=== PATIENT | female | born 1955 | race Hispanic/Latino ===

== ENCOUNTER → 2017-11-18 | Outpatient (CLI) | payer OTHER ==
[~2017-11-18] MED LIST: ATOR40TA69 PO; CALC-911 PO; DIAZ5TAB4 PO; ESCI20TA PO; GEMF600T4 PO; LORA10TA7 PO; OMEP40CA37 PO; PROP40TA7 PO; VITA1CAP85 PO
== END | disposition home or self-care (01) ==
LOC: RAH 10:39
PROVIDERS: ATTEND Family Medicine
DX: M79.89 Other specified soft tissue disorders (principal)
CPT/HCPCS: 73700

== ENCOUNTER 2017-12-09 06:19 | Day surgery (SDC) | payer OTHER ==
[2017-12-07 15:53] VITALS: BP 144/68
[2017-12-07 16:08] LABS: APPEARANCE,URINE Clear (CLEAR); BILIRUBIN,URINE Negative (NEGATIVE); COLOR,URINE Yellow (YELLOW); GLUCOSE, URINE (UA) Negative (NEGATIVE); KETONES,URINE Negative (NEGATIVE); LEUKOCYTE ESTERASE ,URINE Small (NEGATIVE); NITRATE,URINE Negative (NEGATIVE); OCCULT BLOOD,URINE Negative (NEGATIVE); PH,URINE 5.5 (5.0-8.0); PROTEIN,URINE Negative (NEGATIVE); UROBILINOGEN,URINE 0.2 mg/dL (0.2-1.0)
[2017-12-07 16:10] LABS: BASOPHILS % (AUTO) 0.4 % (0.0-5.0); HEMATOCRIT 42.5 % (36-48); LYMPHOCYTES % (AUTO) 33.5 % (21.0-51.0); MEAN CORPUSCULAR HGB CONC 32.5 g/dL (32.0-36.0); MEAN CORPUSCULAR VOLUME 89.3 fL (79-99); MONOCYTES % (AUTO) 6.3 % (3.0-13.0); NEUTROPHILS % (AUTO) 57.8 % (40.0-77.0); PLATELET COUNT (AUTO) 245 K/uL (130-400); RED BLOOD CELL COUNT(AUTO) 4.77 MIL/uL (4.00-5.50); RED CELL DISTRIBUTION WIDTH 15.2 % (11.0-15.5); WHITE BLOOD COUNT (AUTO) 6.6 K/uL (4.8-10.8)
[2017-12-07 16:19] LABS: CREATININE 0.9 mg/dL (0.5-1.5); POTASSIUM 3.8 mmol/L (3.5-5.1)
[2017-12-07 16:29] LABS: RBC,URINE 0-1 /HPF (0-1)
[2017-12-07 16:30] LABS: BACTERIA,URINE Rare /HPF (None Seen)
[2017-12-07 16:31] LABS: SQUAMOUS EPITHELIAL CELL,UR Rare /HPF (0-2); TRANSITIONAL EPI CELLS,URINE Rare /HPF (None Seen)
[~2017-12-09] VITALS: Ht 149.9 cm; Wt 83.5 kg
[2017-12-09] VITALS (14 sets, daily range): BP systolic 113–143; BP diastolic 60–78
[~2017-12-09 06:19] MED LIST changes: -CALC-911 PO; +CALCIUM + D3 PO; -ESCI20TA PO; +ESCI20TA36 PO; +FEXO180T94 PO; -GEMF600T4 PO; -LORA10TA7 PO; +SODIUM CHLORIDE 0.9% 1000ML 1,000 ML IV SCH
[2017-12-09] MEDS ORDERED: PROPOFOL 10 MG/ML 20ML VIAL IV ONE (06:54)
[2017-12-09] MEDS ORDERED: LIDOCAINE PF 2% 5ML ABBOJECT ONE (06:54)
[2017-12-09] MEDS ORDERED: ONDANSETRON HCL 4 MG/2 ML VIAL ONE (06:54)
[2017-12-09] MEDS ORDERED: FENTANYL CITRATE PF 50 MCG/1 ML 2ML VIAL ONE ×2 (06:55→08:34)
[2017-12-09] MEDS ORDERED: BUPIVACAINE/PF 0.25% 30ML VIAL IJ ONE (07:27)
[2017-12-09] MEDS ORDERED: FAMOTIDINE/PF 20 MG/2 ML VIAL IV ONE (07:38)
[2017-12-09] MEDS ORDERED: MIDAZOLAM HCL 1 MG/ML 2ML VIAL ONE (07:39)
== END 2017-12-09 10:10 | disposition home or self-care (01) ==
LOC: DAH 06:19
PROVIDERS: ATTEND Surgery
DX: C82.85 Other types of follicular lymphoma, lymph nodes of inguinal region and lower limb (principal); R59.0 Localized enlarged lymph nodes; E11.9 Type 2 diabetes mellitus without complications; E66.9 Obesity, unspecified; M79.7 Fibromyalgia; I10 Essential (primary) hypertension; K21.9 Gastro-esophageal reflux disease without esophagitis; K76.0 Fatty (change of) liver, not elsewhere classified; H91.91 Unspecified hearing loss, right ear; M19.90 Unspecified osteoarthritis, unspecified site; Z88.0 Allergy status to penicillin; Z79.899 Other long term (current) drug therapy; Z90.49 Acquired absence of other specified parts of digestive tract; Z98.51 Tubal ligation status; Z98.890 Other specified postprocedural states; Z88.8 Allergy status to other drugs, medicaments and biological substances
CPT/HCPCS: 36415; 38500; 80048; 81001; 82948 ×2; 85025; 88304; A4450; A4600; J2001; J2250; J2405; J2704; J3010; J3490; J7030

== ENCOUNTER 2018-01-05 07:05 | Day surgery (SDC) | payer OTHER ==
[2018-01-03 13:09] VITALS: BP 133/71
[2018-01-03 13:15] LABS: BASOPHILS % (AUTO) 0.4 % (0.0-5.0); EOSINOPHILS % (AUTO) 1.7 % (0.0-8.0); HEMATOCRIT 40.7 % (36-48); LYMPHOCYTES % (AUTO) 29.7 % (21.0-51.0); MEAN CORPUSCULAR HGB CONC 33.9 g/dL (32.0-36.0); MEAN CORPUSCULAR VOLUME 88.6 fL (79-99); MONOCYTES % (AUTO) 6.7 % (3.0-13.0); NEUTROPHILS % (AUTO) 61.5 % (40.0-77.0); PLATELET COUNT (AUTO) 230 K/uL (130-400); RED BLOOD CELL COUNT(AUTO) 4.59 MIL/uL (4.00-5.50); RED CELL DISTRIBUTION WIDTH 14.7 % (11.0-15.5); WHITE BLOOD COUNT (AUTO) 7.3 K/uL (4.8-10.8)
[2018-01-03 13:25] LABS: INR 0.93 (0.85-1.15); PARTIAL THROMBOPLASTIN TIME 26.9 SEC (26.3-35.5); PROTHROMBIN TIME 9.8 SEC (9.6-11.6)
[~2018-01-05] VITALS: Ht 149.9 cm; Wt 81.5 kg
[~2018-01-05 07:05] MED LIST changes: -SODIUM CHLORIDE 0.9% 1000ML 1,000 ML IV SCH
[2018-01-05 07:15] VITALS: BP 118/71
[2018-01-05] MEDS ORDERED: LIDOCAINE 1%-EPI 1:100,000 20 ML VIAL IJ ONE (10:49)
[2018-01-05] MEDS ORDERED: LIDOCAINE HCL 1% MDV 50ML VIAL ONE (10:49)
[2018-01-05] MEDS ORDERED: BUPIVACAINE/PF 0.25% 50ML VIAL IJ ONE (10:49)
[2018-01-05] MEDS ORDERED: MIDAZOLAM HCL 1 MG/ML 2ML VIAL ONE (11:05)
[2018-01-05] MEDS ORDERED: FENTANYL CITRATE PF 50 MCG/1 ML 2ML VIAL ONE (11:05)
[2018-01-05 11:55] VITALS: BP 126/64
[2018-01-05 12:12] VITALS: BP 122/69
[2018-01-05 12:18] VITALS: BP 120/60
== END 2018-01-05 12:30 | disposition home or self-care (01) ==
LOC: DAH 07:05
PROVIDERS: ATTEND Internal Medicine Medical Oncology
DX: Z51.11 Encounter for antineoplastic chemotherapy (principal); Z79.899 Other long term (current) drug therapy; Z88.0 Allergy status to penicillin; Z88.8 Allergy status to other drugs, medicaments and biological substances; Z68.38 Body mass index [BMI] 38.0-38.9, adult; E66.9 Obesity, unspecified; I10 Essential (primary) hypertension; K21.9 Gastro-esophageal reflux disease without esophagitis; E78.5 Hyperlipidemia, unspecified; F41.9 Anxiety disorder, unspecified; F32.9 Major depressive disorder, single episode, unspecified; Z98.51 Tubal ligation status; C82.20 Follicular lymphoma grade III, unspecified, unspecified site
CPT/HCPCS: 36415; 36561; 77001; 82948; 85025; 85610; 85730; A4606; C1788; C1894; J1644 ×2; J2250; J3010; J3490 ×2; 99156; 99157

== ENCOUNTER 2018-07-01 06:56 | Emergency (ER) | payer OTHER, MEDICARE ==
[2018-07-01 07:50] LABS: BASOPHILS % (AUTO) 0.5 % (0.0-5.0); EOSINOPHILS % (AUTO) 2.4 % (0.0-8.0); HEMATOCRIT 38.5 % (36-48); LYMPHOCYTES % (AUTO) 7.6 % (21.0-51.0); MEAN CORPUSCULAR HEMOGLOBIN 31.8 pg (27.0-33.0); MEAN CORPUSCULAR HGB CONC 34.4 g/dL (32.0-36.0); MEAN CORPUSCULAR VOLUME 92.4 fL (79-99); MONOCYTES % (AUTO) 18.2 % (3.0-13.0); NEUTROPHILS % (AUTO) 71.3 % (40.0-77.0); PLATELET COUNT (AUTO) 170 K/uL (130-400); RED BLOOD CELL COUNT(AUTO) 4.17 MIL/uL (4.00-5.50); RED CELL DISTRIBUTION WIDTH 14.4 % (11.0-15.5)
[2018-07-01 07:52] LABS: APPEARANCE,URINE CLEAR (CLEAR); BILIRUBIN,URINE NEGATIVE (NEGATIVE); COLOR,URINE YELLOW (YELLOW); GLUCOSE, URINE (UA) NEGATIVE (NEGATIVE); KETONES,URINE NEGATIVE (NEGATIVE); LEUKOCYTE ESTERASE ,URINE NEGATIVE (NEGATIVE); NITRATE,URINE NEGATIVE (NEGATIVE); OCCULT BLOOD,URINE TRACE-INTACT (NEGATIVE); PH,URINE 5.5 (5.0-8.0); PROTEIN,URINE NEGATIVE (NEGATIVE); UROBILINOGEN,URINE 0.2 mg/dL (0.2-1.0)
[2018-07-01 07:59] LABS: CREATININE 0.8 mg/dL (0.5-1.5); POTASSIUM 3.9 mmol/L (3.5-5.1)
[2018-07-01 08:03] LABS: ALBUMIN 3.2 g/dL (3.5-5.0); BILIRUBIN,TOTAL 0.5 mg/dL (0.2-1.0); TOTAL PROTEIN, SERUM 7.4 g/dL (6.0-8.3)
[2018-07-01 08:05] LABS: BACTERIA,URINE Rare /HPF (None Seen); RBC,URINE 0-1 /HPF (0-1); SQUAMOUS EPITHELIAL CELL,UR Few /HPF (0-2); WBC,URINE 0-1 /HPF (0-1)
[2018-07-01 08:26] LABS: BASOPHILS % (MANUAL) 1 % (0-2); EOSINOPHILS % (MANUAL) 3 % (1-6); LYMPHOCYTES % (MANUAL) 4 % (22-44); MAN.DIFF COMMENT-IMPRESSION MANUAL DIFFERENTIAL; MONOCYTES % (MANUAL) 12 % (2-9); PLATELET MORPHOLOGY COMMENT ADEQUATE; REACTIVE LYMPHOCYTES 3 % (0-0); SEGMENTED NEUTROPHILS % 77 % (40-70)
== END 2018-07-01 09:08 | disposition home or self-care (01) ==
LOC: EDH 06:56
DX: R10.13 Epigastric pain (principal); R11.2 Nausea with vomiting, unspecified; E11.9 Type 2 diabetes mellitus without complications; F41.9 Anxiety disorder, unspecified; F32.9 Major depressive disorder, single episode, unspecified; E78.5 Hyperlipidemia, unspecified; Z90.49 Acquired absence of other specified parts of digestive tract; Z79.4 Long term (current) use of insulin; Z88.1 Allergy status to other antibiotic agents
CPT/HCPCS: 36415; 74176; 80053; 81001; 83690; 84484; 85025; 93005

== ENCOUNTER 2019-05-07 20:34 | Inpatient (IN) | payer OTHER, MEDICARE ==
[~2019-05-07] VITALS: Ht 149.9 cm; Wt 84.8 kg
[~2019-05-07 20:34] MED LIST changes: +DOCU100C33 PO; +OMEP40CA13 PO; -OMEP40CA37 PO
[2019-05-07] MEDS ORDERED: ACETAMINOPHEN EXTRA STRENGTH 500 MG TABLET ONE (20:57)
[2019-05-07 21:36] LABS: EOSINOPHILS % (AUTO) 1.4 % (0.0-8.0); HEMATOCRIT 34.6 % (36-48); LYMPHOCYTES % (AUTO) 28.1 % (21.0-51.0); MEAN CORPUSCULAR HEMOGLOBIN 29.2 pg (27.0-33.0); MEAN CORPUSCULAR HGB CONC 32.1 g/dL (32.0-36.0); MEAN CORPUSCULAR VOLUME 91.1 fL (79-99); MONOCYTES % (AUTO) 26.7 % (3.0-13.0); NEUTROPHILS % (AUTO) 31.5 % (40.0-77.0); PLATELET COUNT (AUTO) 127 K/uL (130-400); RED CELL DISTRIBUTION WIDTH 14.6 % (11.0-15.5); WHITE BLOOD COUNT (AUTO) 1.5 K/uL (4.8-10.8)
[2019-05-07 21:49] LABS: RAPID GROUP A STREP NEGATIVE (NEGATIVE)
[2019-05-07 21:55] LABS: CREATININE 0.9 mg/dL (0.5-1.5); POTASSIUM 3.9 mmol/L (3.5-5.1)
[2019-05-07 22:00] LABS: ALBUMIN 2.6 g/dL (3.5-5.0); BILIRUBIN,TOTAL 0.4 mg/dL (0.2-1.0)
[2019-05-07 22:07] LABS: BAND NEUTROPHILS % (MANUAL) 2 % (0-2); EOSINOPHILS % (MANUAL) 1 % (1-6); LYMPHOCYTES % (MANUAL) 30 % (22-44); MAN.DIFF COMMENT-IMPRESSION MANUAL DIFFERENTIAL; MONOCYTES % (MANUAL) 32 % (2-9); SEGMENTED NEUTROPHILS % 35 % (40-70)
[2019-05-07 23:05] LABS: APPEARANCE,URINE Clear (CLEAR); BILIRUBIN,URINE Negative (NEGATIVE); COLOR,URINE Yellow (YELLOW); GLUCOSE, URINE (UA) Negative (NEGATIVE); KETONES,URINE Negative (NEGATIVE); LEUKOCYTE ESTERASE ,URINE Negative (NEGATIVE); NITRATE,URINE Negative (NEGATIVE); OCCULT BLOOD,URINE Negative (NEGATIVE); PH,URINE 7.5 (5.0-8.0); PROTEIN,URINE Negative (NEGATIVE); UROBILINOGEN,URINE 0.2 mg/dL (0.2-1.0)
[2019-05-08] MEDS ORDERED: SODIUM CHLORIDE 0.9% 1000ML 1,000 ML IV ONE (00:49)
[2019-05-08] MEDS ORDERED: LEVOFLOXACIN 750 MG/D5W 150 ML 150 ML ONE (00:49)
[2019-05-08] MEDS ORDERED: ERYTHROMYCIN BASE 0.5% OPHTH OINT 1 GM TUBE ONE (01:52)
[2019-05-08] MEDS ORDERED: IBUPROFEN 400 MG TABLET ONE (02:06)
[2019-05-08] MEDS ORDERED: ACETAMINOPHEN 325 MG TAB ONE ×2 (02:11→11:29)
[2019-05-08] MEDS ORDERED: ZOSYN 3.375GM+NS 50ML 50 ML IV ONE (04:11)
[2019-05-08] MEDS ORDERED: LACTATED RINGERS 1000ML 1,000 ML IV ONE (07:22)
[2019-05-08] MEDS ORDERED: ENOXAPARIN SODIUM 40 MG/0.4 ML SYRINGE SQ ONE (07:39)
[2019-05-08] MEDS ORDERED: PANTOPRAZOLE SODIUM 40 MG TABLET.DR ONE (07:39)
[2019-05-08] MEDS ORDERED: OSELTAMIVIR PHOSPHATE 75 MG CAP ONE (07:40)
[2019-05-08] MEDS: ZOSYN 3.375GM+NS 50ML 50 ML IV SCH ×2 (08:00→16:00)
[2019-05-08] MEDS ORDERED: ONDANSETRON HCL 4 MG/2 ML VIAL IVP PRN (08:00)
[2019-05-08] MEDS ORDERED: LIDOCAINE HCL-MPF 1% 2ML VIAL IJ PRN (08:00)
[2019-05-08] MEDS ORDERED: IBUPROFEN 400 MG TABLET PO PRN (08:00)
[2019-05-08] MEDS ORDERED: POTASSIUM CHLORIDE 20MEQ/100ML 100 ML IV PRN (08:00)
[2019-05-08] MEDS ORDERED: HYDRALAZINE HCL 20 MG/ML VIAL IV PRN (08:00)
[2019-05-08] MEDS ORDERED: POTASSIUM CHLORIDE 10% ELIXIR 20 MEQ/15 ML UDCUP PO PRN (08:00)
[2019-05-08] MEDS: LACTATED RINGERS 1000ML 1,000 ML IV SCH ×3 (08:00→21:46)
[2019-05-08] MEDS ORDERED: VANCOMYCIN PROTOCOL PER PHARMACY IV SCH (08:15)
[2019-05-08] MEDS ORDERED: COMPOUND IV REFRIGERATED 1 EACH IVSOLN MISC PRN (08:15)
[2019-05-08] MEDS: PANTOPRAZOLE SODIUM 40 MG TABLET.DR PO SCH (09:00)
[2019-05-08] MEDS: OSELTAMIVIR SUSP 15 MG/ML (6 CAPS/29ML) PO SCH ×4 (09:00→21:00)
[2019-05-08] MEDS: VANCOMYCIN 1.25 GM in SODIUM CHLORIDE 0.9% 250 ML IV SCH (09:00)
[2019-05-08] MEDS: ENOXAPARIN SODIUM 40 MG/0.4 ML SYRINGE SQ SCH (09:00)
[2019-05-08] MEDS ORDERED: LENA15CA PO (09:35)
[2019-05-08] MEDS ORDERED: DEXA4TAB PO (09:35)
[2019-05-08] MEDS ORDERED: ACYC400T PO (09:35)
[2019-05-08] MEDS ORDERED: METRONIDAZOLE 500MG/100ML BAG 100 ML ONE (11:18)
[2019-05-08] MEDS ORDERED: ONDANSETRON HCL 4 MG/2 ML VIAL ONE (11:29)
--- NOTE | 2019-05-08 11:43 | NUR ---
INITIAL Patient lives with son. Emergency contacts are sons: Lei Guillory, [phone] and Jose Jeffry, [phone]. No home services. Patient is visited by nurse from her insurance once a month. DME: glucometer (no insulin). Patient is able to drive and complete ADL's independently. PCP is Dr. Alfonso Morin. Pharmacy is [facility] located in [place]. DCP is home. Addendum: 05/08/19 at 1145 by ALFONSO FOX SS Amended: Links added.
[2019-05-08 13:50] VITALS: BP 106/65
[2019-05-08 15:50] VITALS: BP 106/65
[2019-05-08] MEDS: INSULIN R PO SS1 SQ SCH ×2 (16:30→21:00)
[2019-05-08] MEDS ORDERED: LEVOFLOXACIN 500 MG/D5W 100 ML 100 ML IV SCH (18:30)
[2019-05-08 19:05] VITALS: BP 131/52
--- NOTE | 2019-05-08 20:41 | NUR ---
EYE PAIN AND HEADACHE PT IS COMPLAINING OF SEVERE EYE IRRITATION AND HEADACHE. PT STATES TO BELIEVE HEADACHE IS BEING CAUSED BY HER EYE IRRITATION. LEFT EYE IS VISUALLY RED, SENSITIVE TO LIGHT, AND MINIMAL DISCHARGE IS NOTED. ATTENDING PAGED AT THIS TIME FOR FURTHER ORDERS.
[2019-05-08] MEDS: ***HM***(Fexofenadine HCl (Allegra Allergy) 180 MG) PO SCH (21:00)
[2019-05-08] MEDS ORDERED: CALCIUM 600 + VITAMIN D 400 TABLET PO SCH (21:00)
[2019-05-08] MEDS ORDERED: HYDROCODONE/ACETAMINOPHEN 5/325 MG TAB PO PRN (21:15)
[2019-05-08] MEDS: ATORVASTATIN CALCIUM 40 MG TABLET PO SCH (21:47)
[2019-05-08] MEDS: ACETAMINOPHEN 325 MG TAB PO PRN (21:47)
[2019-05-08] MEDS: PROPRANOLOL HCL 20 MG TAB PO SCH (21:49)
[2019-05-08] MEDS: CITALOPRAM 20 MG TABLET PO SCH (21:49)
[2019-05-08] MEDS: DIAZEPAM 5 MG TABLET PO SCH (22:15)
[2019-05-08] MEDS ORDERED: PHARMACY COMMUNICATION MISC SCH (22:30)
[2019-05-08 23:23] VITALS: BP 117/58
[2019-05-09] MEDS: LEVOFLOXACIN 250 MG/D5W 50ML 50 ML IVPB SCH ×2 (01:44→01:46)
[2019-05-09 03:10] VITALS: BP 121/46
[2019-05-09 04:38] LABS: HEMATOCRIT 31.2 % (36-48); MEAN CORPUSCULAR HGB CONC 31.4 g/dL (32.0-36.0); MEAN CORPUSCULAR VOLUME 92.3 fL (79-99); PLATELET COUNT (AUTO) 130 K/uL (130-400); RED BLOOD CELL COUNT(AUTO) 3.38 MIL/uL (4.00-5.50); RED CELL DISTRIBUTION WIDTH 14.8 % (11.0-15.5); WHITE BLOOD COUNT (AUTO) 1.2 K/uL (4.8-10.8)
[2019-05-09 05:01] LABS: POTASSIUM 4.1 mmol/L (3.5-5.1)
[2019-05-09] MEDS: INSULIN R PO SS1 SQ SCH ×4 (07:16→21:00)
[2019-05-09 07:30] VITALS: BP 123/63
[2019-05-09] MEDS: PANTOPRAZOLE SODIUM 40 MG TABLET.DR PO SCH ×2 (09:00→09:16)
[2019-05-09] MEDS: OSELTAMIVIR SUSP 15 MG/ML (6 CAPS/29ML) PO SCH ×4 (09:00→21:34)
[2019-05-09] MEDS: PROPRANOLOL HCL 20 MG TAB PO SCH ×2 (09:15→20:06)
[2019-05-09] MEDS: CALCIUM 600 + VITAMIN D 400 TABLET PO SCH ×2 (09:15→20:06)
[2019-05-09] MEDS: ENOXAPARIN SODIUM 40 MG/0.4 ML SYRINGE SQ SCH (09:15)
[2019-05-09] MEDS: LACTATED RINGERS 1000ML 1,000 ML IV SCH ×2 (09:26→16:03)
[2019-05-09] MEDS: VANCOMYCIN 1.25 GM in SODIUM CHLORIDE 0.9% 250 ML IV SCH (10:16)
[2019-05-09] MEDS: DIAZEPAM 5 MG TABLET PO SCH ×2 (10:16→21:26)
[2019-05-09 11:00] VITALS: BP 125/66
[2019-05-09] MEDS: ACETAMINOPHEN 325 MG TAB PO PRN ×2 (11:36→20:05)
[2019-05-09] MEDS ORDERED: COMPOUND PO MISCELLANEOUS 1 EACH MISC MISC PRN (12:00)
[2019-05-09] MEDS: GENTAMICIN SULFATE 0.3% 3.5 GM OPHTH OINT OU SCH ×3 (12:37→21:29)
[2019-05-09] MEDS: TBO-FILGRASTIM 300 MCG/0.5 ML ML SQ SCH (14:49)
[2019-05-09 16:00] VITALS: BP 111/61
[2019-05-09 19:05] VITALS: BP 133/66
[2019-05-09] MEDS: FLUTICASONE PROPIONATE 50MCG/SPRAY 16 GM BOTTLE EN SCH (20:04)
[2019-05-09] MEDS: ACYCLOVIR 200 MG CAPSULE PO SCH (20:05)
[2019-05-09] MEDS: CITALOPRAM 20 MG TABLET PO SCH (20:06)
[2019-05-09] MEDS ORDERED: GUAIFENESIN 600 MG TABLET.ER PO SCH (21:00)
[2019-05-09] MEDS: ***HM***(Fexofenadine HCl (Allegra Allergy) 180 MG) PO SCH (21:00)
[2019-05-09] MEDS: ACETYLCYSTEINE 600 MG CAPSULE PO SCH (21:23)
[2019-05-09] MEDS: ATORVASTATIN CALCIUM 40 MG TABLET PO SCH (21:23)
[2019-05-09 23:48] VITALS: BP 127/50
[2019-05-10] MEDS: LACTATED RINGERS 1000ML 1,000 ML IV SCH ×3 (02:31→23:35)
[2019-05-10] MEDS: LEVOFLOXACIN 250 MG/D5W 50ML 50 ML IVPB SCH (02:31)
[2019-05-10 03:00] VITALS: BP 126/59
[2019-05-10 05:30] LABS: ALBUMIN 2.1 g/dL (3.5-5.0); BILIRUBIN,TOTAL 0.3 mg/dL (0.2-1.0); CREATININE 0.9 mg/dL (0.5-1.5); POTASSIUM 3.8 mmol/L (3.5-5.1); TOTAL PROTEIN, SERUM 6.3 g/dL (6.0-8.3)
[2019-05-10 05:45] LABS: HEMATOCRIT 31.1 % (36-48); MEAN CORPUSCULAR HEMOGLOBIN 29.3 pg (27.0-33.0); MEAN CORPUSCULAR HGB CONC 31.8 g/dL (32.0-36.0); PLATELET COUNT (AUTO) 165 K/uL (130-400); RED BLOOD CELL COUNT(AUTO) 3.38 MIL/uL (4.00-5.50); RED CELL DISTRIBUTION WIDTH 14.7 % (11.0-15.5); WHITE BLOOD COUNT (AUTO) 2.3 K/uL (4.8-10.8)
[2019-05-10 06:15] LABS: BAND NEUTROPHILS % (MANUAL) 20 % (0-2); EOSINOPHILS % (MANUAL) 4 % (1-6); LYMPHOCYTES % (MANUAL) 20 % (22-44); MAN.DIFF COMMENT-IMPRESSION MANUAL DIFFERENTIAL; METAMYELOCYTES % 2 % (0-0); MONOCYTES % (MANUAL) 8 % (2-9); MYELOCYTES % 4 % (0-0); PLATELET MORPHOLOGY COMMENT ADEQUATE; REACTIVE LYMPHOCYTES 8 % (0-0); SEGMENTED NEUTROPHILS % 34 % (40-70)
[2019-05-10] MEDS: INSULIN R PO SS1 SQ SCH ×3 (06:51→21:00)
[2019-05-10] MEDS: PANTOPRAZOLE SODIUM 40 MG TABLET.DR PO SCH ×2 (06:51→08:51)
--- NOTE | 2019-05-10 07:59 | NUR ---
Patient remained stable, no significant change through the night,endorsed care to incoming NOD using SBAr,all questions answered.
[2019-05-10 08:12] VITALS: BP 128/63
[2019-05-10] MEDS: TBO-FILGRASTIM 300 MCG/0.5 ML ML SQ SCH (08:50)
[2019-05-10] MEDS: ENOXAPARIN SODIUM 40 MG/0.4 ML SYRINGE SQ SCH (08:51)
[2019-05-10] MEDS: CALCIUM 600 + VITAMIN D 400 TABLET PO SCH ×2 (08:51→21:20)
[2019-05-10] MEDS: ACYCLOVIR 200 MG CAPSULE PO SCH ×2 (08:51→21:20)
[2019-05-10] MEDS: ACETYLCYSTEINE 600 MG CAPSULE PO SCH ×2 (08:51→21:19)
[2019-05-10] MEDS: PROPRANOLOL HCL 20 MG TAB PO SCH ×2 (08:52→21:20)
[2019-05-10] MEDS: GENTAMICIN SULFATE 0.3% 3.5 GM OPHTH OINT OU SCH ×2 (08:57→21:24)
[2019-05-10] MEDS: OSELTAMIVIR SUSP 15 MG/ML (6 CAPS/29ML) PO SCH ×4 (08:57→21:28)
[2019-05-10] MEDS: FLUTICASONE PROPIONATE 50MCG/SPRAY 16 GM BOTTLE EN SCH ×2 (08:58→21:24)
[2019-05-10] MEDS: DIAZEPAM 5 MG TABLET PO SCH ×2 (09:04→21:28)
[2019-05-10 11:15] VITALS: BP 121/62
[2019-05-10] MEDS: ACETAMINOPHEN 325 MG TAB PO PRN (11:15)
--- NOTE | 2019-05-10 13:28 | NUR ---
[id number] patient signed IM Letter to [id number] and placed in chart under consent tab
[2019-05-10 16:00] VITALS: BP 122/61
[2019-05-10 19:00] VITALS: BP 127/63
[2019-05-10] MEDS: ***HM***(Fexofenadine HCl (Allegra Allergy) 180 MG) PO SCH (21:00)
[2019-05-10] MEDS: CITALOPRAM 20 MG TABLET PO SCH (21:20)
[2019-05-10] MEDS: ATORVASTATIN CALCIUM 40 MG TABLET PO SCH (21:20)
[2019-05-10 23:00] VITALS: BP 132/66
[2019-05-11] MEDS: LEVOFLOXACIN 250 MG/D5W 50ML 50 ML IVPB SCH (01:04)
[2019-05-11 03:00] VITALS: BP 125/65
[2019-05-11 04:13] LABS: HEMATOCRIT 31.8 % (36-48); MEAN CORPUSCULAR HEMOGLOBIN 28.6 pg (27.0-33.0); MEAN CORPUSCULAR HGB CONC 31.4 g/dL (32.0-36.0); MEAN CORPUSCULAR VOLUME 90.9 fL (79-99); PLATELET COUNT (AUTO) 195 K/uL (130-400); RED CELL DISTRIBUTION WIDTH 14.8 % (11.0-15.5)
[2019-05-11 04:26] LABS: CREATININE 0.9 mg/dL (0.5-1.5); POTASSIUM 3.7 mmol/L (3.5-5.1)
[2019-05-11 07:22] LABS: BAND NEUTROPHILS % (MANUAL) 4 % (0-2); EOSINOPHILS % (MANUAL) 1 % (1-6); LYMPHOCYTES % (MANUAL) 6 % (22-44); MAN.DIFF COMMENT-IMPRESSION MANUAL DIFFERENTIAL; MONOCYTES % (MANUAL) 22 % (2-9); SEGMENTED NEUTROPHILS % 67 % (40-70)
[2019-05-11 07:24] LABS: PLATELET MORPHOLOGY COMMENT ADEQUATE
[2019-05-11] MEDS: INSULIN R PO SS1 SQ SCH ×2 (07:30→10:51)
[2019-05-11] MEDS: PANTOPRAZOLE SODIUM 40 MG TABLET.DR PO SCH ×2 (08:09)
[2019-05-11 08:11] VITALS: BP 131/85
[2019-05-11] MEDS: ENOXAPARIN SODIUM 40 MG/0.4 ML SYRINGE SQ SCH (09:58)
[2019-05-11] MEDS: LACTATED RINGERS 1000ML 1,000 ML IV SCH ×2 (09:58)
[2019-05-11] MEDS: ACETYLCYSTEINE 600 MG CAPSULE PO SCH (09:59)
[2019-05-11] MEDS: CALCIUM 600 + VITAMIN D 400 TABLET PO SCH (09:59)
[2019-05-11] MEDS: GENTAMICIN SULFATE 0.3% 3.5 GM OPHTH OINT OU SCH ×2 (09:59→14:23)
[2019-05-11] MEDS: FLUTICASONE PROPIONATE 50MCG/SPRAY 16 GM BOTTLE EN SCH (09:59)
[2019-05-11] MEDS: ACYCLOVIR 200 MG CAPSULE PO SCH (10:01)
[2019-05-11] MEDS: PROPRANOLOL HCL 20 MG TAB PO SCH (10:01)
[2019-05-11] MEDS: DIAZEPAM 5 MG TABLET PO SCH (10:02)
[2019-05-11] MEDS: POTASSIUM CHLORIDE 20 MEQ ERTAB PO PRN ×2 (10:03→14:20)
[2019-05-11] MEDS: OSELTAMIVIR SUSP 15 MG/ML (6 CAPS/29ML) PO SCH ×2 (10:49)
[2019-05-11 11:11] VITALS: BP 112/48
[2019-05-11 16:38] VITALS: BP 113/53
--- NOTE | 2019-05-11 16:38 | NUR ---
Called Dr. Carroll to inquire of recommendations prior to patient's discharge. Per Dr. Carroll, hold off on discharge until patient is seen.
--- NOTE | 2019-05-11 20:17 | NUR ---
PT DISCHARGED PT GIVEN DISCHARGE INSTRUCTIONS. PT VERBALIZED AN UNDERSTANDING OF DC INSTRUCTIONS. IV REMOVED WITH CATH INTACT. PT TAKEN TO ER LOBBY VIA FOR DISCHARGE. PT DID NOT EXHIBIT ANY DISTRESS.
[2019-05-15] MEDS ORDERED: DEXAMETHASONE 4 MG TAB PO SCH (09:00)
== END 2019-05-11 20:15 | disposition home or self-care (01) | DRG 202 ==
LOC: EDH 20:34 → OBSVTOIN 05-08 01:51 → EDHIP 05-08 01:51 → 4CH 05-08 15:55
PROVIDERS: ADMIT Internal Medicine Critical Care Medicine; ATTEND Internal Medicine Critical Care Medicine
DX: J20.9 Acute bronchitis, unspecified (principal); C85.90 Non-Hodgkin lymphoma, unspecified, unspecified site; J01.90 Acute sinusitis, unspecified; E11.9 Type 2 diabetes mellitus without complications; E78.5 Hyperlipidemia, unspecified; F32.9 Major depressive disorder, single episode, unspecified; F41.9 Anxiety disorder, unspecified; H10.30 Unspecified acute conjunctivitis, unspecified eye; Z79.4 Long term (current) use of insulin; Z88.0 Allergy status to penicillin; Z90.49 Acquired absence of other specified parts of digestive tract; Z98.51 Tubal ligation status
CPT/HCPCS: 36415; 70486; 71045; 71046; 80048; 80053; 81003; 82948; 83605; 85025; 85027; 87040; 87071; 87205; 87804; 87880; G0378; J1650; J1956; J2405; J2543; J3370; J3490; J7030; J7120

== ENCOUNTER 2023-06-10 15:28 | Emergency (ER) | payer OTHER, MEDICARE ==
[~2023-06-10] VITALS: Ht 149.9 cm; Wt 78.9 kg
[~2023-06-10 15:28] MED LIST changes: +ACYC400T20 PO; +DEXA4TAB PO; -DOCU100C33 PO; -ESCI20TA36 PO; +ESCI20TA38 PO; +LENA15CA PO; -OMEP40CA13 PO; +OMEP40CA21 PO
[2023-06-10] MEDS ORDERED: 0.9%NACL 1000ML 1,000 ML IV SCH (15:30)
[2023-06-10 16:39] LABS: SARS-CoV-2, RNA, NAAT NEGATIVE SARS CoV-2 (NEGATIVE)
[2023-06-10 16:44] LABS: INFLUENZA TYPE A Negative For Type A (NEGATIVE); INFLUENZA TYPE B Negative For Type B (NEGATIVE)
[2023-06-10 17:56] LABS: BASOPHILS # (AUTO) 0.03 K/uL (0.00-0.20); BASOPHILS % (AUTO) 0.6 % (0.0-5.0); EOSINOPHILS # (AUTO) 0.12 K/uL (0.00-0.70); EOSINOPHILS % (AUTO) 2.5 % (0.0-8.0); HEMATOCRIT 36.7 % (36-48); IMMATURE GRANULOCYTE ABSOLUTE 0.01 K/uL (0-1); LYMPHOCYTES # (AUTO) 1.7 K/uL (1.0-4.8); LYMPHOCYTES % (AUTO) 35.2 % (21.0-51.0); MEAN CORPUSCULAR HEMOGLOBIN 29.5 pg (27.0-33.0); MEAN CORPUSCULAR HGB CONC 32.4 g/dL (32.0-36.0); MEAN CORPUSCULAR VOLUME 91.1 fL (79-99); MONOCYTES # (AUTO) 0.3 K/uL (0.1-1.0); MONOCYTES % (AUTO) 5.3 % (3.0-13.0); NEUTROPHILS # (AUTO) 2.7 K/uL (1.8-7.7); NEUTROPHILS % (AUTO) 56.2 % (40.0-77.0); PLATELET COUNT (AUTO) 178 K/uL (130-400); RED BLOOD CELL COUNT(AUTO) 4.03 MIL/uL (4.00-5.50); RED CELL DISTRIBUTION WIDTH 15.4 % (11.0-15.5); WHITE BLOOD COUNT (AUTO) 4.8 K/uL (4.8-10.8)
[2023-06-10] MEDS: KETOROLAC 30MG VIAL (30MG/ML) IVP ONE (18:07)
[2023-06-10] MEDS: 0.9%NACL 1000ML 1,000 ML IV ONE (18:07)
[2023-06-10 18:08] LABS: APPEARANCE,URINE CLEAR (CLEAR); BILIRUBIN,URINE NEGATIVE (NEGATIVE); COLOR,URINE LIGHT-YELLOW (YELLOW); GLUCOSE, URINE (UA) NEGATIVE (NEGATIVE); KETONES,URINE NEGATIVE (NEGATIVE); LEUKOCYTE ESTERASE ,URINE 75 Leu/uL (NEGATIVE); NITRATE,URINE NEGATIVE (NEGATIVE); OCCULT BLOOD,URINE NEGATIVE (NEGATIVE); PROTEIN,URINE NEGATIVE (NEGATIVE); UROBILINOGEN,URINE 0.2 mg/dL (0.2-1.0)
[2023-06-10 18:09] LABS: ADD UA MICROSCOPIC YES
[2023-06-10 18:10] LABS: MUCUS,URINE RARE LPF (None Seen); RBC,URINE 0-1 /HPF (0-1); SQUAMOUS EPITHELIAL CELL,UR MOD /HPF (0-2); TRANSITIONAL EPI CELLS,URINE RARE /HPF (None Seen)
[2023-06-10 18:17] LABS: CREATININE 0.8 mg/dL (0.5-1.0)
[2023-06-10 18:21] LABS: ALBUMIN 3.1 g/dL (3.5-5.0); BILIRUBIN,TOTAL 0.5 mg/dL (0.2-1.0); TOTAL PROTEIN, SERUM 6.4 g/dL (6.0-8.3)
[2023-06-10] MEDS ORDERED: IOHEXOL 350 MG/ML 100ML INFUS..BTL IV ONE (18:41)
[2023-06-10] MEDS ORDERED: DICY20TA2 PO (19:40)
[2023-06-10 19:48] VITALS: BP 142/60; PULSE 72; RESP 14; O2SAT 97
== END 2023-06-10 19:55 | disposition home or self-care (01) ==
LOC: EDH 15:28
DX: A08.4 Viral intestinal infection, unspecified (principal); R19.7 Diarrhea, unspecified; R10.12 Left upper quadrant pain; E11.9 Type 2 diabetes mellitus without complications; E78.00 Pure hypercholesterolemia, unspecified; I10 Essential (primary) hypertension; Z79.61 Long term (current) use of immunomodulator; Z79.624 Long term (current) use of inhibitors of nucleotide synthesis; Z88.0 Allergy status to penicillin; Z88.1 Allergy status to other antibiotic agents; Z88.5 Allergy status to narcotic agent; Z90.49 Acquired absence of other specified parts of digestive tract; Z98.51 Tubal ligation status; Z20.822 Contact with and (suspected) exposure to COVID-19
CPT/HCPCS: 99285; 74177; 96374; 71045; 87635; 84484; 80053; 83690; 85025; 87088; 87804 ×2; 81001; 36415; 93005; J7030; J1885; Q9967

== ENCOUNTER → 2023-06-19 | Outpatient (CLI) | payer OTHER, MEDICARE ==
[~2023-06-19] MED LIST changes: +DICY20TA2 PO
== END | disposition home or self-care (01) ==
LOC: SHCH 07:41
PROVIDERS: ATTEND Internal Medicine Cardiovascular Disease
DX: Q21.12 Patent foramen ovale (principal); I51.7 Cardiomegaly
CPT/HCPCS: 93306